=== PATIENT | male | born 1985 | race Caucasian/White ===

== ENCOUNTER 2018-08-25 13:45 | Emergency (ER) | payer OTHER ==
[~2018-08-25] VITALS: Ht 165.1 cm; Wt 119.5 kg
[2018-08-25] MEDS ORDERED: FLEXERIL PO ×3 (15:48→16:00)
[2018-08-25] MEDS ORDERED: TORADOL PO ×3 (15:48→16:00)
[2018-08-25 15:55] VITALS: BP 131/89
== END 2018-08-25 15:55 | disposition home or self-care (01) | DRG 563 ==
LOC: ED 13:45
DX: S29.012A Strain of muscle and tendon of back wall of thorax, initial encounter (principal); V53.5XXA Driver of pick-up truck or van injured in collision with car, pick-up truck or van in traffic accident, initial encounter